=== PATIENT | male | born 1990 | race Caucasian/White ===

== ENCOUNTER 2019-10-17 13:22 | Emergency (ER) | payer MEDICAID ==
[~2019-10-17] VITALS: Ht 177.8 cm; Wt 61.2 kg
[2019-10-17 14:47] VITALS: BP 123/63
--- NOTE | 2019-10-17 14:47 | NUR ---
Patient discharged to home in stable condition. Written and verbal after care instructions given. Patient verbalizes understanding of instructions. Stressed follow up or return to ER for worsening s/s.
== END 2019-10-17 15:04 | disposition home or self-care (01) ==
LOC: ER 13:22
DX: J02.9 Acute pharyngitis, unspecified (principal)
CPT/HCPCS: 36415; 86403; 87070; A4663